=== PATIENT | female | born 1990 | race Caucasian/White ===

== ENCOUNTER 2017-11-25 07:15 | Day surgery (SDC) | END 2017-11-25 11:48 | disposition home or self-care (01) ==

== ENCOUNTER 2019-05-15 17:07 | Outpatient (CLI) | payer BC ==
--- NOTE | 2019-05-15 21:04 | PN ---
Triage Information Date/Time May 15, 2019 Reason for visit: DFM Weeks of Gestation 38w 3d /Para 3/1 Diabetes: none Hypertention: none Additional information Pt thought the baby was moving less today and she has occasional contractions but no bleeding or leaking. PMHx: none. PSHx: x 1. NKDA Objective 112/77 T=98.6 Heart Rate: 130's Heart Rate Comments Accels to 150 BPM. No decels. Contractions: >10 Minutes Apart Results/Medications Imaging Results BPP 8/8. MARISOL 12.5. VTX. Disposition: Discharge Assessment/Plan A: IUP at 38w 3d. Decreased movement. P: D/c home now as after p.o. hydration the pt is now feeling the baby moving. Pt is to keep her appt with Dr Grijalva, as scheduled, on 05/18. kick counts reviewed. JOSIE CANTU MD May 15, 2019 21:04
--- NOTE | 2019-05-16 05:43 | TRIAGE ---
OB Triage Datetime Report Generated by CPN: 05/16/2019 05:42 Datetime: 05/15/2019 19:20 Stage of : OB Triage Maternal Assessment Level of Consciousness: Keenly Alert, Responsive DTR's/Clonus: DTRs 1+ Headache: Denies Breath Sounds, Left: Clear and Equal Breath Sounds, Right: Clear and Equal Nausea/Vomiting: Denies RUQ Epigastric Pain: Denies Labor Evaluation Frequency: X2 Monitor Mode: External Duration (sec)2399: 50-60 Quality: Mild Pattern: Normal: <= 5 Contractions in 10 Minutes Resting Tone [place]: Relaxed Heart Rate FHR Baseline Rate: 135 Monitor Mode: External US Variability: Moderate 6-25 bpm Accelerations: 15X15 Decelerations: None Category: Category I Pain Assessment Pain Scale: 0 Pain Presence: None/Denies Pain Type: N/A Pain Goal: 3 Vaginal Exam Membrane Status: Intact Datetime: 05/15/2019 18:24 Stage of : OB Triage Maternal Assessment Level of Consciousness: Keenly Alert, Responsive DTR's/Clonus: DTRs 1+ Headache: Denies Breath Sounds, Left: Clear and Equal Breath Sounds, Right: Clear and Equal Nausea/Vomiting: Denies RUQ Epigastric Pain: Denies Labor Evaluation Frequency: NONE Monitor Mode: External Resting Tone [place]: Relaxed Heart Rate FHR Baseline Rate: 135 Monitor Mode: External US Variability: Moderate 6-25 bpm Accelerations: 10X10 Decelerations: None Category: Category II Pain Assessment Pain Scale: 0 Pain Presence: None/Denies Pain Type: N/A Pain Goal: 3 Vaginal Exam Membrane Status: Intact Datetime: 05/15/2019 17:41 Maternal Assessment Level of Consciousness: Keenly Alert, Responsive DTR's/Clonus: DTRs 1+ Headache: Denies Blurred Vision: No Respiratory Effort: Unlabored Breath Sounds, Left: Clear and Equal Breath Sounds, Right: Clear and Equal Nausea/Vomiting: Denies RUQ Epigastric Pain: Denies Facial Edema: None Labor Evaluation Frequency: NONE Monitor Mode: External Resting Tone [place]: Relaxed Heart Rate FHR Baseline Rate: 135 Monitor Mode: External US Variability: Moderate 6-25 bpm Accelerations: 10X10 Decelerations: None Category: Category I Pain Assessment Pain Scale: 0 Pain Presence: None/Denies Pain Type: N/A Pain Goal: 3 Vaginal Exam Membrane Status: Intact Datetime: 05/15/2019 17:18 EGA: 38.3 Datetime: 05/15/2019 17:10 Assessment Type: Triage Maternal Assessment Level of Consciousness: Keenly Alert, Responsive DTR's/Clonus: DTRs 2+; No Clonus Headache: Denies Blurred Vision: No Respiratory Effort: Unlabored; Regular Rhythm; Equal Expansion Breath Sounds, Left: Clear and Equal Breath Sounds, Right: Clear and Equal Nausea/Vomiting: Denies RUQ Epigastric Pain: Denies Lower Extremities Edema: None Degree: None Upper Extremities Edema: None Degree: None Facial Edema: None Fall Risk Assessment History of Falling: (0) No Secondary Diagnosis: (0) No Ambulatory Aid: (0) Bedrest/Nurse Assist IV Therapy: (0) No Gait: (0) Normal/Bedrest/Immobile Mental Status: (0) Oriented to Own Ability Fall Score: 0 Fall Risk Score Definition: No Risk: No action required Datetime: 05/15/2019 16:57 Time of Arrival: 05/15/2019 16:57 Arrived By: Ambulatory Arrived From: Home Chief Complaint: PT CAME IN FROM HOME C/O DFM Movement: Present Contractions: Denies/Absent Rupture of Membranes: Denies Vaginal Discharge: Denies Recent Sexual Intercouse: Denies Abdominal Trauma: Not Applicable Additional Patient Complaints: NONE Provider Notified: GERSON/TERRI Initial Plan: NST AND BPP
== END 2019-05-15 20:55 | disposition home or self-care (01) ==
LOC: OBT 17:07 → L-D 17:08 → OBT 20:55
PROVIDERS: ATTEND Obstetrics & Gynecology
DX: O36.8130 Decreased fetal movements, third trimester, not applicable or unspecified (principal); Z3A.38 38 weeks gestation of pregnancy
CPT/HCPCS: 76818; Z7500; G0463

== ENCOUNTER 2019-05-20 11:09 | Inpatient (IN) | payer BC ==
[~2019-05-20] VITALS: Ht 154.9 cm; Wt 53.8 kg
--- NOTE | 2019-05-20 08:55 | PREOPHP ---
DATE OF ADMISSION: 05/20/2019 HISTORY OF PRESENT ILLNESS: This is a 28-year-old lady, 3, para 1 with 1 spontaneous abortio n. Her EDC 05/26/2019, at 39 and 1/7 weeks, admitted to labor and delivery area for repeat . She had care in my [place] office and the care was uneventful. She has 1 previo us sections, so she is for repeat . The patient discharged repeat . The procedures were explained to the patient and she understood everything totally. The risks, benefits, and alternatives were discussed with her as well. PAST PERSONAL HISTORY: No history of TB, asthma. ALLERGIES: NO ALLERGIES. SOCIAL HISTORY: Patient does not smoke. She does not drink. MEDICATIONS: She does not take any drugs except her iron and vitamins. GYNECOLOGICAL HISTORY: She had menarche at the age of 13, every 28 days interval, 3 to 4 days durati on, and moderate in amount. FAMILY HISTORY: Noncontributory. She is 3, para 1. Her first delivery was in 2013 by . She had 1 spontaneous aborti on in 2017 at 11 weeks. She had a history diagnosed with positive hepatitis 7 years ago. REVIEW OF SYSTEMS: CARDIOVASCULAR: No chest pains. RESPIRATORY: No cough. GASTROINTESTINAL: No diarrhea, no vomiting. GENITOURINARY: No dysuria. PHYSICAL EXAMINATION: GENERAL: Reveals a conscious, coherent lady and in no acute distress. VITAL SIGNS: Her blood pressure 120/80, pulse rate 80 per minute, respirations 16 per minute. BREASTS, HEART AND LUNGS: Within normal limits. ABDOMEN: Soft. No organomegaly. Fundic height 37 cm. heart tones 140 per minute. PELVIC: Deferred. EXTREMITIES: No pedal edema. ADMITTING DIAGNOSIS: A 39 and 1/7 weeks intrauterine , with 1 previous section. T he patient was planned to have a repeat at the patient's request. The procedures were expl ained to the patient and she understood everything totally. The risks, benefits and alternatives wer e discussed with her as well. Dictated By: MARISOL SERVIN/NTS Conf#: [id number] DID#: [id number]
[2019-05-20] MEDS: LACTATED RINGER'S 1,000 ML IV SCH ×2 (11:33→19:33)
[2019-05-20 11:45] VITALS: BP 108/69; PULSE 62; RESP 18
[2019-05-20 11:46] VITALS: Ht 154.9 cm; Wt 53.8 kg
[2019-05-20] MEDS ORDERED: METHYLERGONOVINE 0.2 MG INJ IM PRN ×2 (12:00→17:00)
[2019-05-20] MEDS ORDERED: CARBOPROST 250 MCG INJ IM PRN ×2 (12:00→17:00)
[2019-05-20] MEDS ORDERED: OXYTOCIN 30 UNITS/LR 500 ML IV PRN ×2 (12:00→17:00)
[2019-05-20] MEDS ORDERED: MISOPROSTOL 200 MCG TAB PR PRN ×2 (12:00→17:00)
[2019-05-20] MEDS ORDERED: OXYTOCIN 30 UNITS/LR 500 ML IV SCH ×2 (12:00→16:38)
[2019-05-20] MEDS ORDERED: CEFAZOLIN 2 GM/50 ML (PMX) 50 ML IVPB SCH (12:00)
[2019-05-20] MEDS ORDERED: LACTATED RINGER'S 1,000 ML IV ONE ×2 (12:30→16:13)
[2019-05-20] MEDS ORDERED: METOCLOPRAMIDE 10 MG INJ ONE (15:33)
[2019-05-20] MEDS ORDERED: morphine SULFATE/PF (10 MG/10 ML) INJ ONE (15:33)
[2019-05-20] MEDS ORDERED: MIDAZOLAM 1 MG/ML 2 ML INJ ONE ×3 (15:57)
[2019-05-20] MEDS ORDERED: DIPHENHYDRAMINE 50 MG INJ ONE (15:59)
[2019-05-20] MEDS ORDERED: OXYTOCIN 10 UNIT INJ ONE ×2 (16:00→16:35)
[2019-05-20] MEDS ORDERED: ONDANSETRON 4 MG INJ ONE (16:01)
[2019-05-20] MEDS ORDERED: FENTAnyl 50 MCG/ML VIAL ONE (16:05)
--- NOTE | 2019-05-20 16:13 | PREAC ---
Date/Time of Note Date/Time of Note DATE: 05/20/19 TIME: 16:10 Anesthesia Eval and Record Evaluation Time Pre-Procedure Interview DATE: 05/20/19 TIME: 15:10 Age 29 Sex female NPO: 8 hrs Preoperative diagnosis iup @ 39 wks., h/o hep. b, prev. c/s, contractions Planned procedure repeat c/s Past Medical History Past Medical History: Includes Hepatic: Hepatitis : : (3), Para: (1), Gestational age: (39 wks.) Surgery & Anesthesia Issues No known issue Meds Anticoagulation: No Beta Too within 24 hr: No Reason Beta Too not given: Pt. not on B-Too No Active Prescriptions or Reported Meds Current Medications Lactated Ringer's 1,000 ml @ 125 mls/hr Q8H IV ; Start 05/20/19 at 11:33 Cefazolin Sodium/ Dextrose 50 ml @ 100 mls/hr ONCE IVPB ; Start 05/20/19 at 12:00 Oxytocin/Lactated Ringer's 500 ml @ 125 mls/hr POST IV ; Start 05/20/19 at 12:00 Oxytocin/Lactated Ringer's 500 ml @ 0 mls/hr ONCE PRN IV .VAGINAL BLEEDING; Start 05/20/19 at 12:00 Methylergonovine Maleate (Methergine) 0.2 mg ONCE PRN IM .VAGINAL BLEEDING; Start 05/20/19 at 12:00 Carboprost Tromethamine (Hemabate) 250 mcg ONCE PRN IM .VAGINAL BLEEDING; Start 05/20/19 at 12:00 Misoprostol (Cytotec) 1,000 mcg ONCE PRN DE .VAGINAL BLEEDING; Start 05/20/19 at 12:00 Meds reviewed: Yes Allergies Coded Allergies: No Known Allergy (Unverified , 11/25/17) Allergies Reviewed: Yes Labs/Studies Labs Reviewed: Reviewed by anesthesiologist Result Diagram: 05/20/19 1140 Laboratory Tests 05/20/19 11:40 Blood Bank Test 05/20/19 11:40 Antibody Screen NEGATIVE Blood Type O POSITIVE Rh Immune Globulin Candidate NO test: Positive Studies: ECG (n/a), CXR (n/a) Pre-procedure Exam Last vitals Vital Signs Date Temp Pulse Resp B/P (MAP) Pulse Ox O2 O2 Flow FiO2 Time Delivery Rate 05/20/19 98.0 62 18 108/69 Room Air 11:45 (82) Airway: Adequate mouth opening, Adequate thyromental dist Mallampati: Mallampati II Teeth: Normal Lung: Normal Heart: Normal ASA Physical Status ASA physical status: 3 Emergency: E Planned Anesthetic Neuraxial: Spinal Planned Pain Management Sub-arachniod narcotics, Parenteral pain med, Local by surgeon Pre-operative Attestations Prior to commencing anesthesia and surgery, the patient was re-evaluated, there was verification of: *The patient's identity *The results of appropriate recent lab work and preoperative vital signs *The above evaluation not changing prior to induction *Anesthetic plan, risk benefits, alternative and complications discussed with patient/family; questions answered; patient/family understands, accepts and wishes to proceed. Musculoskeletal Physician used MATT RODRIGUEZ MD May 20, 2019 16:13
[2019-05-20] MEDS ORDERED: ONDANSETRON 4 MG INJ IV PRN (16:30)
[2019-05-20] MEDS ORDERED: NALBUPHINE HCL (10 MG/1 ML) INJ IV PRN (16:30)
[2019-05-20] MEDS ORDERED: DIPHENHYDRAMINE 50 MG INJ IV PRN ×2 (16:30)
[2019-05-20] MEDS ORDERED: ONDANSETRON 4 MG INJ IV ONE (16:30)
[2019-05-20] MEDS ORDERED: NALOXONE (0.4 MG/ML) INJ IV PRN (16:30)
[2019-05-20] MEDS ORDERED: ZOLPIDEM 5 MG TAB PO PRN (16:30)
[2019-05-20] MEDS ORDERED: MEPERIDINE 25 MG INJ IV PRN (16:30)
[2019-05-20] MEDS ORDERED: KETOROLAC 30 MG INJ ONE (16:30)
[2019-05-20] MEDS ORDERED: MIDAZOLAM 1 MG/ML 2 ML INJ IV PRN (16:30)
[2019-05-20] MEDS ORDERED: HYDROmorphONE 0.5 MG/0.5 ML SYG IV PRN ×2 (16:30)
[2019-05-20] MEDS ORDERED: LACTATED RINGER'S 1,000 ML IV SCH (16:38)
--- NOTE | 2019-05-20 16:38 | OPPN ---
Date/Time of Note Date/Time of Note DATE: 05/20/19 TIME: 16:35 Operative Report Planned Procedure Procedure date May 20, 2019 Procedure(s) REPEAT CSECTION Performed by see signature line Tile Sprayer: JOSIE CANTU MD 2nd Tile Sprayer none Pre-procedure diagnosis 39 1 IUP PREVIOS CSECTION [id number] Anesthesia Type: [id number] spinal Post-Procedure Post-procedure diagnosis 39 1 IUP PREVIOS CSECTION Findings Live Baby GIRL, Apgars 9and 9, weight 6LBS 4OZ 2830 GRAMS Estimated Blood Loss: 500 - 600 mls Specimen(s) none Grafts/Implant(s) PLACENTA Complication(s) none MARISOL NIETO MD May 20, 2019 16:38
[2019-05-20] MEDS ORDERED: LANOLIN HPA 1 PKT TOP PRN (17:00)
[2019-05-20] MEDS ORDERED: METHYLERGONOVINE 0.2 MG TAB PO PRN (17:00)
[2019-05-20] MEDS: KETOROLAC 30 MG INJ IV PRN (17:02)
--- NOTE | 2019-05-20 17:13 | PAC ---
Date/Time of Note Date/Time of Note DATE: 05/20/19 TIME: 17:13 Post-Anesthesia Notes Post-Anesthesia Note Last documented vital signs Vital Signs Date Temp Pulse Resp B/P (MAP) Pulse Ox O2 O2 Flow FiO2 Time Delivery Rate 05/20/19 98.0 62 18 108/69 Room Air 11:45 (82) Activity: WNL Respiratory function: WNL Cardiovascular function: WNL Mental status: Baseline Pain reasonably controlled: Yes Hydration appropriate: Yes Nausea/Vomiting absent: Yes MATT RODRIGUEZ MD May 20, 2019 17:13
[2019-05-20] MEDS: SENNA/DOCUSATE NA (8.6MG/50MG) TAB PO SCH (21:00)
[2019-05-20 22:00] VITALS: BP 117/81; PULSE 83; RESP 17
--- NOTE | 2019-05-20 23:27 | OPR ---
DATE OF OPERATION: 05/20/2019 PREOPERATIVE DIAGNOSIS: A 39 and 1/7 weeks intrauterine , with 1 previous , desire s repeat section. POSTOPERATIVE DIAGNOSIS: A 39 and 1/7 weeks intrauterine with 1 previous , desire s repeat section. OPERATION PERFORMED: Repeat low transverse section. SURGEON: Dr. Grijalva. DAIRY FARM WORKER: Dr. Harper. ANESTHESIA: Spinal. ANESTHESIOLOGIST: Dr. Robertson. OPERATIVE TECHNIQUE: Under spinal anesthesia, the patient was prepped and draped in the usual fashio n for abdominal surgery. After checking for the effect of the anesthesia, the previous Pfannenstiel scar was excised. A 10 cm skin incision was performed. The incision was carried from the skin up to the fascia. Upon opening the skin up to the fascia, small blood vessels were noted to be oozing and these were all cauterized. Fascia was opened transversely followed by splitting the muscles vertica l and the peritoneum vertically. Upon opening the abdominal cavity, the bladder blade was put in mohsen ce. There were no adhesions noted. The lower uterine segment was noted to be thinned out. An incis ion was performed about 2 inches above the lower uterine segment. The incision was carried from the serosa up to the endometrium and the lori was carried sideways with the aid of my 2 fingers. My left hand was inserted in the lower segment of the uterus and the bag of water was ruptured. Clear fluid was noted. Baby's head was delivered with good fundal pressure. The baby's airway was quickly suct ioned with amniotic fluid. The anterior shoulder, posterior shoulder, and rest of the body of the ba by was delivered. There were 2 loops of tight cord around the baby's neck that needed to be released after the baby was delivered. Baby's airway was quickly suctioned with amniotic fluid. The baby's cord was clamped after 30 seconds and baby was handed to the shop technician and to the nursery nurs e. The placenta was delivered manually and complete. The uterus was exteriorized. The uterus was c leansed with wet lap sponge to make sure that no membranes were left behind. After correct spo nge count, the uterus was closed in the usual fashion using #1 chromic for the first layer. Continuo us locking suture was used followed by #1 chromic for the second layer, imbricating sutures were used . Bleeders were checked and there was no bleeding noted. After checking for any bleeders in which t here were none, both tubes and ovaries were inspected. They were healthy looking. The back of the u terus was checked for any hematoma and there was none noted. The uterus was put back into the pelvic cavity. Once again, uterine incision was checked for any bleeders and there was no bleeding noted. After correct sponge count, needle count, and instrument count as confirmed by the pharmacy technologist and ci rculator, the abdomen was closed in the usual fashion using 0 Vicryl for the peritoneum, 0 Vicryl for the muscles. For the fascia, 0 Vicryl continuous stitch was used followed by few [id number] thomas ture. For the subcutaneous tissue, it was closed with 3-0 Vicryl and the skin was closed with 3-0 Vi cryl, subcuticular suture was used. The patient tolerated the procedure well. Estimated blood loss about 600 mL. She delivered a healthy baby girl, Apgars 9 and 9 at 1558 hours, weighing 6 pounds 4 o unces, 2830 grams, 18.5 inches long. Dictated By: MARISOL SERVIN/CRYSTAL Conf#: [id number] DID#: [id number]
[2019-05-21] VITALS: BP 103/65; RESP 18
--- NOTE | 2019-05-21 00:22 | OPPN ---
Date/Time of Note Date/Time of Note DATE: 05/21/19 TIME: 00:20 Anesthesia Follow up Anesthesia Follow up Last documented vital signs Vital Signs Date Temp Pulse Resp B/P (MAP) Pulse Ox O2 O2 Flow FiO2 Time Delivery Rate 05/20/19 98.0 62 18 108/69 Room Air 11:45 (82) Respiratory function: WNL Cardiovascular function: WNL Comments S: pt. is pod #1. min. bt pain. min. need for bt pain meds ie nsaids/opiates. min. n/v. ambulating. O: vss, afeb. A: min. bt pain sec to it msO4. P: no complications. MATT RODRIGUEZ MD May 21, 2019 00:22
[2019-05-21] MEDS: LACTATED RINGER'S 1,000 ML IV SCH ×2 (03:33→08:42)
[2019-05-21 04:00] VITALS: BP 117/73; RESP 17
[2019-05-21 08:15] VITALS: BP 120/63; PULSE 76; RESP 16
[2019-05-21] MEDS: SENNA/DOCUSATE NA (8.6MG/50MG) TAB PO SCH ×2 (09:00→21:41)
[2019-05-21 11:50] VITALS: BP 111/64; PULSE 85; RESP 18
[2019-05-21] MEDS: KETOROLAC 30 MG INJ IV PRN (11:50)
[2019-05-21 15:16] VITALS: BP 106/64; PULSE 80; RESP 16
[2019-05-21] MEDS ORDERED: HYDROCODONE/APAP (5/325) TAB PO PRN (15:30)
--- NOTE | 2019-05-21 16:54 | PN ---
Date/Time of Note Date/Time of Note DATE: 05/21/19 TIME: 16:53 Assessment/Plan VTE Prophylaxis Risk score (from Ns)>0 risk: 3 SCD applied (from Ns): Yes Pharmacological prophylaxis: NA/contraindicated Pharm contraindication: low risk/ambulating Lines/Catheters IV [facility] Peripheral IV Assessment/Plan Assessment/Plan POSTCSECTION DAY 1 CHRONIC IRON DEFICIENCY ANEMIA ORDERED ADVANCE DIET TOLERATED CBC ON 3RD POSTOP DAY Result Diagram: 05/21/19 0627 05/21/19 0627 Results 24hrs Laboratory Tests Test 05/21/19 06:27 White Blood Count 8.5 # Red Blood Count 3.57 #L Hemoglobin 9.9 #L Hematocrit 29.7 #L Mean Corpuscular Volume 83.2 Mean Corpuscular Hemoglobin 27.7 L Mean Corpuscular Hemoglobin Concent 33.3 Red Cell Distribution Width 14.7 H Platelet Count 153 Mean Platelet Volume 11.6 H Immature Granulocytes % 0.400 Neutrophils % 70.7 Lymphocytes % 20.9 Monocytes % 7.4 Eosinophils % 0.4 Basophils % 0.2 Nucleated Red Blood Cells % 0.0 Immature Granulocytes # 0.030 Neutrophils # 6.0 Lymphocytes # 1.8 Monocytes # 0.6 Eosinophils # 0.0 Basophils # 0.0 Nucleated Red Blood Cells # 0.0 Sodium Level 134 L Potassium Level 4.3 Chloride Level 105 Carbon Dioxide Level 27 Anion Gap 2 L Blood Urea Nitrogen 11 Creatinine 0.61 Est Glomerular Filtrat Rate mL/min > 60 Glucose Level 54 L Calcium Level 7.9 L Subjective 24 Hr Interval Summary Free Text/Dictation POST CSECTION DAY 1 COMPLAIN OF INCISIONAL PAINS GOOD URINE OUTPUT PASSING GAS PER RECTUM NO BOWEL MOVEMENT YET Exam/Review of Systems Exam Vitals Vital Signs Date Temp Pulse Resp B/P (MAP) Pulse Ox O2 O2 Flow FiO2 Time Delivery Rate 05/21/19 98.5 80 16 106/64 Room Air 15:16 (78) 05/21/19 97 04:00 Intake and Output 05/20/19 05/20/19 05/21/19 1515:00 23:00 07:00 IntakeIntake Total 1250 ml OutputOutput Total 687 ml 700 ml BalanceBalance 563 ml -700 ml Exam VITAL SIGNS STABLE: YES AFEBRILE: YES BREAST NOT ENGORGED, NON-TENDER, NO APPRECIABLE MASS: YES LUNGS CLEAR, NO RALES, WHEEZES, RHONCHI: YES SINUS RHYTHM WITHOUT MURMUR: YES ABDOMEN: NON-TENDER FUNDUS: BELOW UMBILICUS BOWEL SOUNDS: PRESENT UTERUS: FIRM INCISION (CLEAN, DRY, AND INTACT): YES LOCHIA: LIGHT DEEP TENDON REFLEXES: 0 EXTREMITIES: NO CALF TENDERNESS EDEMA SCALE: NONE Results Results 24hrs Laboratory Tests Test 05/21/19 06:27 White Blood Count 8.5 # Red Blood Count 3.57 #L Hemoglobin 9.9 #L Hematocrit 29.7 #L Mean Corpuscular Volume 83.2 Mean Corpuscular Hemoglobin 27.7 L Mean Corpuscular Hemoglobin Concent 33.3 Red Cell Distribution Width 14.7 H Platelet Count 153 Mean Platelet Volume 11.6 H Immature Granulocytes % 0.400 Neutrophils % 70.7 Lymphocytes % 20.9 Monocytes % 7.4 Eosinophils % 0.4 Basophils % 0.2 Nucleated Red Blood Cells % 0.0 Immature Granulocytes # 0.030 Neutrophils # 6.0 Lymphocytes # 1.8 Monocytes # 0.6 Eosinophils # 0.0 Basophils # 0.0 Nucleated Red Blood Cells # 0.0 Sodium Level 134 L Potassium Level 4.3 Chloride Level 105 Carbon Dioxide Level 27 Anion Gap 2 L Blood Urea Nitrogen 11 Creatinine 0.61 Est Glomerular Filtrat Rate mL/min > 60 Glucose Level 54 L Calcium Level 7.9 L Medications Medication Current Medications Lactated Ringer's 1,000 ml @ 125 mls/hr Q8H IV Last administered on 05/21/19at 08:42; Admin Dose 125 MLS/HR; Start 05/20/19 at 11:33 Cefazolin Sodium/ Dextrose 50 ml @ 100 mls/hr ONCE IVPB ; Start 05/20/19 at 12:00 Oxytocin/Lactated Ringer's 500 ml @ 125 mls/hr POST IV Last administered on 05/20/19at 19:24; Admin Dose 125 MLS/HR; Start 05/20/19 at 12:00 Oxytocin/Lactated Ringer's 500 ml @ 0 mls/hr ONCE PRN IV .VAGINAL BLEEDING; Start 05/20/19 at 12:00 Methylergonovine Maleate (Methergine) 0.2 mg ONCE PRN IM .VAGINAL BLEEDING; Start 05/20/19 at 12:00 Carboprost Tromethamine (Hemabate) 250 mcg ONCE PRN IM .VAGINAL BLEEDING; Start 05/20/19 at 12:00 Misoprostol (Cytotec) 1,000 mcg ONCE PRN GA .VAGINAL BLEEDING; Start 05/20/19 at 12:00 Miscellaneous Information (* Miscellaneous Pharmacy Order) Duramorph: 0.2 mg Spi... GIVEN XX ; Start 05/20/19 at 16:30 Methylergonovine Maleate (Methergine) 0.2 mg Q6H PRN PO .VAGINAL BLEEDING; Start 05/20/19 at 17:00 Simethicone (Mylicon) 160 mg Q8H PRN PO .GAS; Start 05/20/19 at 17:00 Senna/Docusate Sodium (Senokot-S) 1 tab BID PO ; Start 05/20/19 at 21:00 Lanolin (Lanolin Hpa) 1 applic BEDSIDE MEDICATION PRN TOP .NIPPLES; Start 05/20/19 at 17:00 Diphtheria/ Tetanus/Acell Pertussis (Adacel) 0.5 ml ONCE ONCE IM* ; Start 05/23/19 at 09:00; Stop 05/23/19 at 09:01 Measles/Mumps/ Rubella Vaccine Live (Mmr Ii Vaccine) 0.5 ml ONCE ONCE SC* ; Start 05/23/19 at 09:00; Stop 05/23/19 at 09:01 Oxytocin/Lactated Ringer's 500 ml @ 0 mls/hr ONCE PRN IV .VAGINAL BLEEDING Last administered on 05/20/19at 22:27; Admin Dose 50 MLS/HR; Start 05/20/19 at 17:00 Methylergonovine Maleate (Methergine) 0.2 mg ONCE PRN IM .VAGINAL BLEEDING; Start 05/20/19 at 17:00 Carboprost Tromethamine (Hemabate) 250 mcg ONCE PRN IM .VAGINAL BLEEDING; Start 05/20/19 at 17:00 Misoprostol (Cytotec) 1,000 mcg ONCE PRN GA .VAGINAL BLEEDING; Start 05/20/19 at 17:00 Ibuprofen (Motrin) 800 mg Q6H PRN PO MILD PAIN LEVEL 1-3; Start 05/21/19 at 15:30 Acetaminophen/ Hydrocodone Bitart ([place] (5/325)) 1 tab Q4H PRN PO MODERATE PAIN LEVEL 4-6; Start 05/21/19 at 15:30 Acetaminophen/ Hydrocodone Bitart ([place] (5/325)) 2 tab Q4H PRN PO SEVERE PAIN LEVEL 7-10; Start 05/21/19 at 15:30 Bisacodyl (Dulcolax Supp) 10 mg ONCE ONCE GA ; Start 05/22/19 at 09:00; Stop 05/22/19 at 09:01 Magnesium Hydroxide (Milk Of Mag) 30 ml ONCE ONCE PO ; Start 05/22/19 at 09:00; Stop 05/22/19 at 09:01 Magnesium Hydroxide (Milk Of Mag) 30 ml ONCE PRN PO CONSTIPATION; Start 05/22/19 at 18:00; Stop 05/23/19 at 17:59 Bisacodyl (Dulcolax Supp) 10 mg ONCE PRN GA CONSTIPATION; Start 05/22/19 at 18:00; Stop 05/23/19 at 17:59 MARISOL NIETO MD May 21, 2019 16:54
[2019-05-21] MEDS: IBUPROFEN 800 MG TAB PO PRN (18:00)
[2019-05-21 20:00] VITALS: BP 105/72; PULSE 82; RESP 18
[2019-05-21] MEDS: HYDROCODONE/APAP (5/325) TAB PO PRN (22:26)
[2019-05-22 04:00] VITALS: BP 110/77; PULSE 87; RESP 17
[2019-05-22 08:00] VITALS: BP 104/72; PULSE 80; RESP 16
[2019-05-22] MEDS: SENNA/DOCUSATE NA (8.6MG/50MG) TAB PO SCH (08:46)
[2019-05-22] MEDS: HYDROCODONE/APAP (5/325) TAB PO PRN ×2 (08:46→16:31)
[2019-05-22] MEDS ORDERED: BISACODYL 10 MG SUPP PR ONE (09:00)
[2019-05-22] MEDS ORDERED: MAGNESIUM HYDROXIDE 30ML CUP PO ONE (09:00)
--- NOTE | 2019-05-22 15:24 | PN ---
Date/Time of Note Date/Time of Note DATE: 05/22/19 TIME: 15:23 Assessment/Plan VTE Prophylaxis Risk score (from Nsg)>0 risk: 3 SCD applied (from Nsg): No SCD contraindicated: low risk/ambulating Pharmacological prophylaxis: NA/contraindicated Pharm contraindication: low risk/ambulating Lines/Catheters IV Catheter Type (from Nrsg): Peripheral IV Assessment/Plan Assessment/Plan POSTCSECTION DAY 2 CHRONIC IRON DEFICIENCY ANEMIA HOME TOMORROW CBC TOMORROW COUNSELED INSTRUCTED PRESCRIPTION GIVEN FOR PAIN RETURN TO CLINIC IN 2 WEEKS CALL OFFICE IF THERE IS ANY PROBLEM OR CONCERN CONTINUE WITH VITAMINS OD AND FERROUS SULFATE 325MG PO TID DIET ADVISED Result Diagram: 05/21/1962605/21/19 06 Results 24hrs Laboratory Tests Test 05/22/19 07:05 Lab Scanned Report REFERENCE LAB Subjective 24 Hr Interval Summary Free Text/Dictation POST CSECTION DAY 2 LITTLE BOWEL MOVEMENT GOOD URINE OUTPUT FEELS LESS INCISIONAL PAINS Exam/Review of Systems Exam Vitals Vital Signs Date Temp Pulse Resp B/P (MAP) Pulse Ox O2 O2 Flow FiO2 Time Delivery Rate 05/22/19 97.8 80 16 104/72 Room Air 08:00 (83) 05/21/19 97 04:00 Intake and Output 05/21/19 05/21/19 05/22/19 1515:00 23:00 07:00 IntakeIntake Total 1250 ml 250 ml OutputOutput Total 1100 ml 1800 ml BalanceBalance 150 ml -1550 ml Exam VITAL SIGNS STABLE: YES AFEBRILE: YES BREAST NOT ENGORGED, NON-TENDER, NO APPRECIABLE MASS: YES LUNGS CLEAR, NO RALES, WHEEZES, RHONCHI: YES SINUS RHYTHM WITHOUT MURMUR: YES ABDOMEN: NON-TENDER FUNDUS: BELOW UMBILICUS BOWEL SOUNDS: PRESENT UTERUS: FIRM INCISION (CLEAN, DRY, AND INTACT): YES LOCHIA: LIGHT DEEP TENDON REFLEXES: 0 EXTREMITIES: NO CALF TENDERNESS EDEMA SCALE: NONE Results Results 24hrs Laboratory Tests Test 05/22/19 07:05 Lab Scanned Report REFERENCE LAB Medications Medication Current Medications Cefazolin Sodium/ Dextrose 50 ml @ 100 mls/hr ONCE IVPB ; Start 05/20/19 at 12:00 Oxytocin/Lactated Ringer's 500 ml @ 125 mls/hr POST IV Last administered on 05/20/19at 19:24; Admin Dose 125 MLS/HR; Start 05/20/19 at 12:00 Oxytocin/Lactated Ringer's 500 ml @ 0 mls/hr ONCE PRN IV .VAGINAL BLEEDING; Sta rt 05/20/19 at 12:00 Methylergonovine Maleate (Methergine) 0.2 mg ONCE PRN IM .VAGINAL BLEEDING; Sta rt 05/20/19 at 12:00 Carboprost Tromethamine (Hemabate) 250 mcg ONCE PRN IM .VAGINAL BLEEDING; Start 05/20/19 at 12:00 Misoprostol (Cytotec) 1,[address] .VAGINAL BLEEDING; Start 05/20/19 at 12:00 Miscellaneous Information (* Miscellaneous Pharmacy Order) Duramorph: 0.2 mg Spi... GIVEN XX ; Start 05/20/19 at 16:30 Methylergonovine Maleate (Methergine) 0.2 mg Q6H PRN PO .VAGINAL BLEEDING; Start 05/20/19 at 17:00 Simethicone (Mylicon) 160 mg Q8H PRN PO .GAS; Start 05/20/19 at 17:00 Senna/Docusate Sodium (Senokot-S) 1 tab BID PO Last administered on 05/22/19at 08:46; Admin Dose 1 TAB; Start 05/20/19 at 21:00 Lanolin (Lanolin Hpa) 1 applic BEDSIDE MEDICATION PRN TOP .NIPPLES Last adm inistered on 05/21/19at 18:00; Admin Dose 1 APPLIC; Start 05/20/19 at 17:00 Diphtheria/ Tetanus/Acell Pertussis (Adacel) 0.5 ml ONCE ONCE IM* ; Start 05/23/19 at 09:00; Stop 05/23/19 at 09:01 Measles/Mumps/ Rubella Vaccine Live (Mmr Ii Vaccine) 0.5 ml ONCE ONCE SC* ; Start 05/23/19 at 09:00; Stop 05/23/19 at 09:01 Oxytocin/Lactated Ringer's 500 ml @ 0 mls/hr ONCE PRN IV .VAGINAL BLEEDING Last administered on 05/20/19at 22:27; Admin Dose 50 MLS/HR; Start 05/20/19 at 17:00 Methylergonovine Maleate (Methergine) 0.2 mg ONCE PRN IM .VAGINAL BLEEDING; Start 05/20/19 at 17:00 Carboprost Tromethamine (Hemabate) 250 mcg ONCE PRN IM .VAGINAL BLEEDING; Start 05/20/19 at 17:00 Misoprostol (Cytotec) 1,[address] .VAGINAL BLEEDING; Start 05/20/19 at 17:00 Ibuprofen (Motrin) 800 mg Q6H PRN PO MILD PAIN LEVEL 1-3 Last administered on 05/21/19at 18:00; Admin Dose 800 MG; Start 05/21/19 at 15:30 Acetaminophen/ Hydrocodone Bitart ([place] (5/325)) 1 tab Q4H PRN PO MODERATE PAIN LEVEL 4-6 Last administered on 05/22/19at 08:46; Admin Dose 1 TAB; Start 05/21/19 at 15:30 Acetaminophen/ Hydrocodone Bitart ([place] (5/325)) 2 tab Q4H PRN PO SEVERE PAIN LEVEL 7-10 Last administered on 05/22/19at 03:20; Admin Dose 2 TAB; Start 05/21/19 at 15:30 Magnesium Hydroxide (Milk Of Mag) 30 ml ONCE PRN PO CONSTIPATION; Start 05/22/19 at 18:00; Stop 05/23/19 at 17:59 Bisacodyl (Dulcolax Supp) [address] CONSTIPATION; Start 05/22/19 at 18:00; Stop 05/23/19 at 17:59 MARISOL NIETO MD May 22, 2019 15:24
[2019-05-22 16:00] VITALS: BP 126/83; PULSE 95; RESP 16
[2019-05-22] MEDS ORDERED: MAGNESIUM HYDROXIDE 30ML CUP PO PRN (18:00)
[2019-05-22] MEDS ORDERED: BISACODYL 10 MG SUPP PR PRN (18:00)
[2019-05-22 19:45] VITALS: BP 122/78; PULSE 97; RESP 20
[2019-05-23] MEDS: HYDROCODONE/APAP (5/325) TAB PO PRN (00:33)
[2019-05-23] MEDS: SENNA/DOCUSATE NA (8.6MG/50MG) TAB PO SCH ×2 (00:33→09:48)
[2019-05-23 04:25] VITALS: BP 110/72; PULSE 74; RESP 18
[2019-05-23 07:45] VITALS: BP 125/88; PULSE 88; RESP 17
[2019-05-23] MEDS ORDERED: MEASLES,MUMPS,RUBELLA VACCINE INJ SC* ONE (09:00)
[2019-05-23] MEDS ORDERED: DIPHTH/TET/ACEL PERTUSS (ADULT) 0.5 ML VIAL IM* ONE (09:00)
[2019-05-23] MEDS: IBUPROFEN 800 MG TAB PO PRN (15:31)
[2019-05-23 15:35] VITALS: BP 115/71; PULSE 72; RESP 18
--- NOTE | 2019-05-24 17:43 | DELSUM ---
Delivery Summary A-C Datetime Report Generated by CPN: 05/24/2019 17:43 DELIVERY PERSONNEL Pre Assembly Wirer: Vega, Betty MATERNAL INFORMATION Delivery Anesthesia: Spinal Medications in Delivery: see anesthesia Delivery QBL (ml): 500 Placenta Cultured: No Maternal Complications: None Other Maternal Complications: previous section scheduled LABOR SUMMARY EDC: 05/26/2019 00:00 No. Babies in Womb: 1 Attempted: No Labor Anesthesia: None LABOR INFORMATION Reason for Induction: Not Applicable Group B Beta Strep: Negative Antibiotics # of Doses: 1 Antibiotics Time of Last Dose: 05/20/2019 15:50 Steroids Given: None Reason Steroids Not Administered: Not Applicable MEMBRANES Membranes Rupture Method: Artificial Rupture of Membranes: 05/20/2019 15:57 Length of Rupture (hr): 0.02 Amniotic Fluid Color: Clear Amniotic Fluid Amount: Moderate Amniotic Fluid Odor: None STAGES OF LABOR Stage 3 hr: 0 Stage 3 min: 1 VAGINAL DELIVERY Laceration Type: None CSECTION DELIVERY Primary Indication: Repeat Elective Secondary Indication: Repeat Elective CSection Urgency: Non Elective CSection Incidence: Repeat Labor: No Labor Elective: Elective CSection Incision: Lower Uterine Transverse BABY A INFORMATION Infant Delivery Date/Time: 05/20/2019 15:58 Method of Delivery: Born in Route : No : N/A Forceps: N/A Vacuum Extraction: N/A Shoulder Dystocia : N/A SHOULDER DYSTOCIA BABY A Delivery Date/Time: 05/20/2019 15:58 PRESENTATION/POSITION BABY A Presentation: Cephalic Cephalic Presentation: Vertex Vertex Position: Left Occipital Anterior Breech Presentation: N/A PLACENTA INFORMATION BABY A Placenta Delivery Time : 05/20/2019 15:59 Placenta Method of Delivery: Manual Removal Placenta Status: Delivered SCORES BABY A Heart Rate 1 min: >100 bpm Resp Effort 1 min: Good Cry Reflex Irritability 1 min: Cough/Sneeze/Pulls Away Muscle Tone 1 min: Active Motion Color 1 min: Body Eleva, Extremit Blue Resuscitation Effort 1 min: Tactile Stimulation SCORE 1 MIN: 9 Heart Rate 5 min: >100 bpm Resp Effort 5 min: Good Cry Reflex Irritability 5 min: Cough/Sneeze/Pulls Away Muscle Tone 5 min: Active Motion Color 5 min: Body Eleva, Extremit Blue Resuscitation Effort 5 min: Tactile Stimulation SCORE 5 MIN: 9 INFANT INFORMATION BABY A Gestational Age at Delivery: 39.1 Gestational Status: Full Term- 39- 40.6 Weeks Outcome : Liveborn, with signs of life Infant Condition : Stable Sex: Female IDENTIFICATION/MEDS BABY A ID Band Number: [id number] ID Band Location: Right Leg; Left Leg Sensor Applied: Yes Sensor Number: [id number] Sensor Location : Cord Clamp Vitamin K Given : Not Given Erythromycin Given: Not Given WEIGHT/LENGTH BABY A Birthweight (gm): 2830 Infant Weight (lb): 6 Infant Weight (oz): 4 Infant Length (in): 18.50 Length (cm): 46.99 CORD INFORMATION BABY A No. Cord Vessels: 3 Nuchal Cord : Around Neck x2, Loose Cord Blood Taken: Yes (Annotations: Data stored by N on behalf of user) Suction: Mouth; Nose
== END 2019-05-23 16:42 | disposition home or self-care (01) | DRG 788 ==
LOC: L-D 11:09 → PP1 21:26
PROVIDERS: ADMIT Obstetrics & Gynecology; ATTEND Obstetrics & Gynecology
PROC: 10D00Z1 Extraction of Products of Conception, Low, Open Approach (ICD-10-PCS; principal; 2019-05-20 14:00)
DX: O34.211 Maternal care for low transverse scar from previous cesarean delivery (principal); O69.1XX0 Labor and delivery complicated by cord around neck, with compression, not applicable or unspecified; O99.02 Anemia complicating childbirth; D50.9 Iron deficiency anemia, unspecified; G89.18 Other acute postprocedural pain; Z3A.39 39 weeks gestation of pregnancy; Z37.0 Single live birth; Z23 Encounter for immunization
CPT/HCPCS: 80048; 85025; 85610; 85730; 86592; 86704; 86850; 86900; 86901; 87340; 90715; 99464; J0690; J1200; J1885; J2250; J2274; J2405; J2590; J2765; J3010; J7120